=== PATIENT | male | born 1965 | race Caucasian/White ===

== ENCOUNTER 2018-09-18 11:06 | Emergency (ER) | payer BC ==
[~2018-09-18] VITALS: Ht 170.2 cm; Wt 81.1 kg
[2018-09-18 11:14] VITALS: BP 133/91; PULSE 98; RESP 18; Ht 170.2 cm; Wt 81.1 kg
[2018-09-18] MEDS ORDERED: ASPIRIN 325 MG TAB PO STA (11:31)
[2018-09-18] MEDS ORDERED: CARV3.12 PO (11:33)
[2018-09-18] MEDS ORDERED: ASPI-817 PO (11:33)
--- NOTE | 2018-09-18 11:33 | ERD ---
ER Documentation Chief Complaint Chief Complaint cp x 2 days. arm pain. min sob HPI This is a 53-year-old male with a history of chest pain times 2 days, which worsened this morning radiating to the right arm. Patient was brought in as a walk-in, he has a history of hypertension and tobacco use, brought in with the , he has a prior history of a STEMI 7 years ago, the patient denies syncope, he denies fever, he took 1 81 of aspirin today. ROS All systems reviewed and are negative except as per history of present illness. Medications Home Meds Reported Medications Aspirin* (Aspirin* EC) 81 Mg Tablet., 81 MG PO DAILY, TAB 09/18/18 Discontinued Reported Medications [Unknown] No Conflict Check 05/08/11 Allergies Allergies: Coded Allergies: No Known Allergies (Verified Allergy, 05/10/11) PMhx/Soc History of Surgery: No Anesthesia Reaction: No Hx Neurological Disorder: No Hx Respiratory Disorders: No Hx Cardiac Disorders: Yes (CAD- 3 STENTS, HTN) Hx Psychiatric Problems: No Hx Miscellaneous Medical Probl: Yes (CHOLESTEROL) Hx Alcohol Use: Yes Hx Substance Use: No Hx Tobacco Use: Yes (1 PPD smoker) Smoking Status: Current every day smoker Physical Exam Vitals Vital Signs Date Temp Pulse Resp B/P (MAP) Pulse Ox O2 O2 Flow FiO2 Time Delivery Rate 09/18/18 98.2 98 18 133/91 97 11:14 (105) Physical Exam Const: Mild distress Head: Atraumatic Eyes: Normal Conjunctiva ENT: Normal External Ears, Nose and Mouth. Neck: Full range of motion. No meningismus. Resp: Clear to auscultation bilaterally Cardio: Regular rate and rhythm, no murmurs Abd: Soft, non tender, non distended. Normal bowel sounds Skin: No petechiae or rashes Back: No midline or flank tenderness Ext: No cyanosis, or edema Neur: Awake and alert Psych: Normal Mood and Affect Procedures/MDM This is a 53-year-old male who presents for evaluation of chest pain. EKG was presented to me which showed elevations in leads II, III and aVF, with typical depression in aVL thus I activated code STEMI 1127, discussed with loco sample mounter, Sivan, who accepts the patient, the patient will be transferred. He was given aspirin, and his pain is currently under control, his blood pressure is 138 systolic. Chest x-ray reviewed by me, no pneumothorax, no widened mediastinum, normal cardiac silhouette. Critical Care Time: 35 minutes Treatments/Evaluations: Close monitoring and treatment of unstable vital signs, cardiorespiratory, and neurologic status, while maintaining tight balance of fluid, respiratory, and cardiac interventions. This time includes discussing the case with the patient and the patient's family. This time does not include all procedures stated elsewhere in this record. This time also includes reviewing old records, labs and radiological studies. This time includes examining and re- examining the patient. Additionally, this time also includes arranging care with admitting and consulting physicians. Departure Diagnosis: Primary Impression: Chest pain Chest pain type: unspecified Qualified Codes: R07.9 - Chest pain, unspecified Additional Impression: STEMI (ST elevation myocardial infarction) Involved coronary artery: unspecified coronary artery Qualified Codes: I21.3 - ST elevation (STEMI) myocardial infarction of unspecified site Condition: Critical FRANCO MITTAL MD Sep 18, 2018 11:33
[2018-09-18] MEDS ORDERED: PRAV40TA76 PO (11:34)
== END 2018-09-18 11:36 | disposition short-term general hospital (02) ==
LOC: E/R 11:06
DX: I21.3 ST elevation (STEMI) myocardial infarction of unspecified site (principal); I25.10 Atherosclerotic heart disease of native coronary artery without angina pectoris; I10 Essential (primary) hypertension; F17.210 Nicotine dependence, cigarettes, uncomplicated; Z79.82 Long term (current) use of aspirin; Z98.61 Coronary angioplasty status
CPT/HCPCS: 36415; 71045; 80053; 84484; 85025; 85610; 93005; Z7502